=== PATIENT | female | born 1940 | race Caucasian/White ===

== ENCOUNTER → 2022-04-04 | Outpatient (CLI) | payer BC, MEDICARE | LOC: M PLARAD 12:53 | DX: C67.9 Malignant neoplasm of bladder, unspecified (principal); C79.51 Secondary malignant neoplasm of bone | CPT/HCPCS: 78815; A9552 ==

== ENCOUNTER 2022-04-21 13:30 | Outpatient (RCR) | payer MEDICARE | END 2022-04-30 | LOC: M PT 13:30 | PROVIDERS: ATTEND Nurse Practitioner Family | DX: R60.0 Localized edema (principal) ==

== ENCOUNTER 2022-05-18 14:09 | Outpatient (RCR) | payer MEDICARE | END 2022-05-31 | LOC: M PT 14:09 | PROVIDERS: ATTEND Nurse Practitioner Family | DX: I89.0 Lymphedema, not elsewhere classified (principal) ==